=== PATIENT | female | born 1960 | race African-American/Black ===

== ENCOUNTER 2017-11-24 09:44 | Inpatient (IN) | payer BC ==
[2017-11-24] VITALS (43 sets, daily range): BP systolic 109–161; BP diastolic 55–101
[~2017-11-24] VITALS: Ht 162.6 cm; Wt 83.9 kg
[~2017-11-24 09:44] MED LIST: ATEN50TA; HYDR25TA
[2017-11-24] MEDS ORDERED: LABETALOL 5MG/ML SYR 20 MG/4 ML SYRINGE IV ONE (10:00)
[2017-11-24 10:12] LABS: BASOPHILS % 1.3 % (0.0-2.0); EOSINOPHILS % 0.8 % (0.0-5.0); HEMATOCRIT. 39.9 % (36.0-48.0); HEMOGLOBIN. 13.4 g/dL (12.0-16.0); MEAN CORPUSCULAR HEMOGLOBIN 28.1 pg (28.0-32.0); MEAN CORPUSCULAR VOLUME 83.9 fL (81.0-99.0); MEAN PLATELET VOLUME 6.8 fl (7.4-10.4); MONOCYTES % 6.6 % (2.0-8.0); NEUTROPHILS % 60.3 % (40.0-76.0); PLATELET 245 x1000/uL (130-400); RED BLOOD CELL COUNT 4.76 mill/uL (4.2-5.4); RED CELL DISTRIBUTION WIDTH 15.6 % (11.6-14.6)
[2017-11-24 10:19] LABS: CHLORIDE 103 mEq/L (98-107)
[2017-11-24 10:20] LABS: INR 1.1; PROTHROMBIN TIME 10.9 sec (9.4-11.6)
[2017-11-24 10:23] LABS: ETHANOL BLOOD < 10 mg/dL
[2017-11-24 10:26] LABS: LDL CHOLESTEROL 120 mg/dL (5-100)
[2017-11-24] MEDS ORDERED: PHENYTOIN SODIUM 500 MG in SODIUM CHLORIDE 0.9% 50 ML IV ONE (10:30)
[2017-11-24] MEDS ORDERED: NICARDIPINE 40MG/200ML PREMIX 200 ML IV PRN (10:38)
[2017-11-24] MEDS ORDERED: IOHEXOL-350 100 ML BOTTLE ONE (10:49)
[2017-11-24] MEDS: NICARDIPINE 50 MG in SODIUM CHLORIDE 0.9% 230 ML IV STA ×2 (10:55→11:00)
[2017-11-24] MEDS ORDERED: POTASSIUM CHLORIDE 20MEQ TABLET SR PO ONE (11:15)
[2017-11-24] MEDS ORDERED: NICARDIPINE 100 MG in SODIUM CHLORIDE 0.9% 60 ML IV PRN (12:45)
[2017-11-24] MEDS ORDERED: LORAZEPAM 2MG/ML CPJ IV PRN (13:45)
[2017-11-24] MEDS ORDERED: DIPHENHYDRAMINE 50MG/ML VIAL IV PRN (13:45)
[2017-11-24] MEDS ORDERED: MORPHINE SULFATE 2 MG/ML CPJ (NOT FOR IM USE) IV PRN (13:45)
[2017-11-24] MEDS ORDERED: IPRATROPIUM/ALBUTEROL 0.5-3(2.5)MG/3ML NEB INH PRN (13:45)
[2017-11-24] MEDS ORDERED: ONDANSETRON HCL 4MG/2ML VIAL IV PRN (13:45)
[2017-11-24] MEDS ORDERED: MORPHINE SULFATE 4 MG/ML CPJ (NOT FOR IM USE) IV PRN (14:00)
[2017-11-24] MEDS: DEXT 5%/LACTATED RINGERS 1,000 ML IV SCH (14:08)
[2017-11-24] MEDS: PHENYTOIN SODIUM 100MG/2ML VIAL IV SCH ×2 (14:08→21:21)
[2017-11-24] MEDS: NICARDIPINE 100 MG in SODIUM CHLORIDE 0.9% 60 ML IV PRN (16:41)
[2017-11-24] MEDS ORDERED: DEXAMETHASONE 4MG/ML 1ML VIAL IV SCH (18:00)
[2017-11-24] MEDS ORDERED: KCL 20MEQ/100ML PREMIX 100 ML IV NR (21:00)
[2017-11-24] MEDS ORDERED: ATORVASTATIN CALCIUM 10MG TABLET PO SCH (21:00)
[2017-11-24 21:11] LABS: CLARITY URINE CLEAR (CLEAR); COLOR URINE YELLOW (YELLOW); KETONES URINE NEGATIVE (NEGATIVE); LEUKOCYTE ESTERASE URINE NEGATIVE (NEGATIVE); NITRITE URINE NEGATIVE (NEGATIVE); OCCULT BLOOD URINE NEGATIVE (NEGATIVE); PH URINE 8.5 (4.5-8.0); PROTEIN URINE NEGATIVE (NEGATIVE); SPECIFIC GRAVITY URINE 1.015 (1.005-1.030); UROBILINOGEN URINE 0.2 E.U./dL (0.2-1.0)
[2017-11-24] MEDS: DEXAMETHASONE 4MG/ML 1ML VIAL IV SCH (21:21)
[2017-11-24 21:24] LABS: *AMPHETAMINES SCREEN URINE NEGATIVE (NEGATIVE); *BARBITURATES SCREEN URINE NEGATIVE (NEGATIVE); *BENZODIAZEPINES SCREEN URINE NEGATIVE (NEGATIVE)
[2017-11-24 21:25] LABS: *COCAINE SCREEN URINE NEGATIVE (NEGATIVE); CANNABINOID URINE SCREEN NEGATIVE (NEGATIVE); METHADONE URINE SCREEN NEGATIVE (NEGATIVE); OPIATES URINE SCREEN NEGATIVE (NEGATIVE); PHENCYCLIDINE URINE SCREEN NEGATIVE (NEGATIVE)
[2017-11-25] VITALS (47 sets, daily range): BP systolic 99–175; BP diastolic 50–118
[2017-11-25 05:58] LABS: BASOPHILS % 0.2 % (0.0-2.0); HEMATOCRIT. 40.2 % (36.0-48.0); HEMOGLOBIN. 13.5 g/dL (12.0-16.0); LYMPHOCYTES % 10.6 % (20.0-50.0); MEAN CORPUSCULAR HEMOGLOBIN 28.4 pg (28.0-32.0); MEAN CORPUSCULAR VOLUME 84.7 fL (81.0-99.0); MEAN PLATELET VOLUME 7.4 fl (7.4-10.4); MONOCYTES % 1.5 % (2.0-8.0); NEUTROPHILS % 87.7 % (40.0-76.0); PLATELET 275 x1000/uL (130-400); RED BLOOD CELL COUNT 4.75 mill/uL (4.2-5.4)
[2017-11-25] MEDS: DEXAMETHASONE 4MG/ML 1ML VIAL IV SCH ×2 (06:05→17:27)
[2017-11-25] MEDS: PHENYTOIN SODIUM 100MG/2ML VIAL IV SCH (06:05)
[2017-11-25 06:11] LABS: CHLORIDE 104 mEq/L (98-107)
[2017-11-25 06:23] LABS: LDL CHOLESTEROL 138 mg/dL (5-100)
[2017-11-25 06:25] LABS: T4 FREE 0.88 ng/dL (0.76-1.46)
[2017-11-25 06:26] LABS: HDL CHOLESTEROL 104 mg/dL (40-59)
[2017-11-25] MEDS: PANTOPRAZOLE SODIUM 40 MG/VIAL IV SCH ×2 (09:00→09:27)
[2017-11-25] MEDS: DEXT 5%/LACTATED RINGERS 1,000 ML IV SCH (09:34)
[2017-11-25] MEDS: AMLODIPINE 5MG TABLET PO SCH (13:36)
[2017-11-25] MEDS: DOCUSATE SODIUM 100MG CAPSULE PO SCH ×2 (13:36→16:42)
[2017-11-25] MEDS ORDERED: CLONIDINE 0.1MG TABLET PO NR (19:15)
[2017-11-25] MEDS ORDERED: ATORVASTATIN CALCIUM 10MG TABLET PO SCH (21:00)
[2017-11-25] MEDS: ATORVASTATIN CALCIUM 20MG TABLET PO SCH (21:15)
[2017-11-26] VITALS (53 sets, daily range): BP systolic 112–178; BP diastolic 60–122
[2017-11-26] MEDS: DEXT 5%/LACTATED RINGERS 1,000 ML IV SCH ×2 (03:41→22:00)
[2017-11-26] MEDS: DEXAMETHASONE 4MG/ML 1ML VIAL IV SCH ×2 (06:00→18:58)
[2017-11-26] MEDS: NICARDIPINE 100 MG in SODIUM CHLORIDE 0.9% 60 ML IV PRN (07:23)
[2017-11-26] MEDS: PANTOPRAZOLE SODIUM 40 MG/VIAL IV SCH (08:39)
[2017-11-26] MEDS: AMLODIPINE 5MG TABLET PO SCH (08:39)
[2017-11-26] MEDS: DOCUSATE SODIUM 100MG CAPSULE PO SCH ×2 (08:39→18:58)
[2017-11-26] MEDS: LISINOPRIL 10MG TABLET PO SCH (13:03)
[2017-11-26] MEDS: CLONIDINE 0.1MG TABLET PO PRN (15:59)
[2017-11-26] MEDS: ATORVASTATIN CALCIUM 20MG TABLET PO SCH (21:26)
[2017-11-27] VITALS (7 sets, daily range): BP systolic 148–194; BP diastolic 87–106
[2017-11-27] MEDS: DEXAMETHASONE 4MG/ML 1ML VIAL IV SCH (05:55)
[2017-11-27] MEDS: LISINOPRIL 10MG TABLET PO SCH (09:05)
[2017-11-27] MEDS: AMLODIPINE 5MG TABLET PO SCH (09:05)
[2017-11-27] MEDS: PANTOPRAZOLE SODIUM 40 MG/VIAL IV SCH (09:05)
[2017-11-27] MEDS: DOCUSATE SODIUM 100MG CAPSULE PO SCH ×2 (09:05→17:00)
[2017-11-27] MEDS: CLONIDINE 0.1MG TABLET PO PRN ×2 (14:01→20:09)
[2017-11-27] MEDS: HYDRALAZINE HCL 25MG TABLET PO SCH ×2 (14:39→22:18)
[2017-11-27] MEDS ORDERED: FUROSEMIDE 40MG TABLET PO NR (14:45)
[2017-11-27] MEDS: ATORVASTATIN CALCIUM 20MG TABLET PO SCH (20:10)
[2017-11-27] MEDS ORDERED: AMLODIPINE 5MG TABLET PO SCH (21:00)
[2017-11-28] VITALS (8 sets, daily range): BP systolic 134–209; BP diastolic 66–135
[2017-11-28] MEDS ORDERED: CLONIDINE 0.2MG TABLET PO PRN (00:45)
[2017-11-28] MEDS: HYDRALAZINE 20MG/ML VIAL IV PRN ×2 (01:01→08:17)
[2017-11-28] MEDS: HYDRALAZINE HCL 25MG TABLET PO SCH ×3 (06:11→22:27)
[2017-11-28 06:31] LABS: BASOPHILS % 0.5 % (0.0-2.0); EOSINOPHILS % 0.9 % (0.0-5.0); HEMATOCRIT. 38.3 % (36.0-48.0); HEMOGLOBIN. 12.8 g/dL (12.0-16.0); LYMPHOCYTES % 36.5 % (20.0-50.0); MEAN CORPUSCULAR HEMOGLOBIN 28.3 pg (28.0-32.0); MEAN CORPUSCULAR VOLUME 84.7 fL (81.0-99.0); MEAN PLATELET VOLUME 7.2 fl (7.4-10.4); MONOCYTES % 9.1 % (2.0-8.0); PLATELET 221 x1000/uL (130-400); RED BLOOD CELL COUNT 4.53 mill/uL (4.2-5.4); RED CELL DISTRIBUTION WIDTH 15.6 % (11.6-14.6)
[2017-11-28] MEDS: LISINOPRIL 40MG TABLET PO SCH (08:16)
[2017-11-28] MEDS: PANTOPRAZOLE SODIUM 40 MG/VIAL IV SCH (08:16)
[2017-11-28] MEDS: AMLODIPINE 10MG TABLET PO SCH ×2 (08:16→21:00)
[2017-11-28] MEDS: DOCUSATE SODIUM 100MG CAPSULE PO SCH ×2 (08:16→17:35)
[2017-11-28] MEDS: LORAZEPAM 2MG/ML CPJ IV PRN ×2 (08:16→19:46)
[2017-11-28 08:44] LABS: CHLORIDE 106 mEq/L (98-107)
[2017-11-28] MEDS ORDERED: LISINOPRIL 20MG TABLET PO SCH (09:00)
[2017-11-28] MEDS ORDERED: POTASSIUM CHLORIDE 20MEQ TABLET SR PO NR (10:45)
[2017-11-28] MEDS: ATORVASTATIN CALCIUM 20MG TABLET PO SCH (21:00)
[2017-11-28] MEDS: MIRTAZAPINE 15MG TABLET PO SCH (21:00)
[2017-11-29] VITALS (9 sets, daily range): BP systolic 129–170; BP diastolic 80–103
[2017-11-29] MEDS: HYDRALAZINE HCL 25MG TABLET PO SCH (06:12)
[2017-11-29 07:44] LABS: CHLORIDE 105 mEq/L (98-107)
[2017-11-29 08:08] LABS: HEMATOCRIT 39.7 % (36.0-48.0); HEMOGLOBIN 13.3 g/dL (12.0-16.0); MEAN CORPUSCULAR HEMOGLOBIN 28.4 pg (28.0-32.0); PLATELET 248 x1000/uL (130-400); RED BLOOD CELL COUNT 4.67 mill/uL (4.2-5.4); RED CELL DISTRIBUTION WIDTH 15.6 % (11.6-14.6)
[2017-11-29] MEDS: CLONIDINE 0.1MG TABLET PO PRN (08:47)
[2017-11-29] MEDS: DOCUSATE SODIUM 100MG CAPSULE PO SCH ×2 (08:47→17:13)
[2017-11-29] MEDS: PANTOPRAZOLE SODIUM 40 MG/VIAL IV SCH (08:47)
[2017-11-29] MEDS: LISINOPRIL 40MG TABLET PO SCH (08:47)
[2017-11-29] MEDS: AMLODIPINE 10MG TABLET PO SCH ×2 (08:48→20:12)
[2017-11-29] MEDS: HYDRALAZINE 20MG/ML VIAL IV PRN (10:32)
[2017-11-29] MEDS ORDERED: CLONIDINE 0.1MG TABLET PO PRN (12:45)
[2017-11-29] MEDS ORDERED: HYDRALAZINE 20MG/ML VIAL IV PRN (12:45)
[2017-11-29] MEDS ORDERED: CLONIDINE 0.1MG TABLET PO NR (12:45)
[2017-11-29] MEDS: CLONIDINE 0.1MG TABLET PO SCH ×2 (12:45→20:13)
[2017-11-29] MEDS: HYDRALAZINE HCL 100MG TABLET PO SCH ×2 (13:50→23:00)
[2017-11-29] MEDS: ATORVASTATIN CALCIUM 20MG TABLET PO SCH (20:13)
[2017-11-29] MEDS: METOPROLOL TARTRATE 25MG TABLET PO SCH (20:13)
[2017-11-29] MEDS: MIRTAZAPINE 15MG TABLET PO SCH (20:13)
[2017-11-29] MEDS: LORAZEPAM 2MG/ML CPJ IV PRN (20:58)
[2017-11-30] VITALS (8 sets, daily range): BP systolic 108–153; BP diastolic 65–103
[2017-11-30] MEDS: HYDRALAZINE HCL 100MG TABLET PO SCH ×3 (05:53→21:31)
[2017-11-30 06:05] LABS: EOSINOPHILS % 1.4 % (0.0-5.0); HEMATOCRIT. 40.6 % (36.0-48.0); HEMOGLOBIN. 13.6 g/dL (12.0-16.0); LYMPHOCYTES % 22.1 % (20.0-50.0); MEAN CORPUSCULAR HEMOGLOBIN 28.3 pg (28.0-32.0); MEAN CORPUSCULAR VOLUME 84.7 fL (81.0-99.0); MEAN PLATELET VOLUME 7.2 fl (7.4-10.4); MONOCYTES % 9.2 % (2.0-8.0); NEUTROPHILS % 66.3 % (40.0-76.0); PLATELET 259 x1000/uL (130-400); RED CELL DISTRIBUTION WIDTH 15.9 % (11.6-14.6)
[2017-11-30 06:18] LABS: CHLORIDE 106 mEq/L (98-107)
[2017-11-30 06:29] LABS: CREATINE KINASE 37 IU/L (26-192)
[2017-11-30 06:34] LABS: CREATINE KINASE MB FRACTION 0.5 ng/mL (0.5-3.6)
[2017-11-30] MEDS: FAMOTIDINE 20MG TABLET PO SCH ×2 (08:38→17:26)
[2017-11-30] MEDS: LISINOPRIL 40MG TABLET PO SCH (08:38)
[2017-11-30] MEDS: DOCUSATE SODIUM 100MG CAPSULE PO SCH ×2 (08:39→17:25)
[2017-11-30] MEDS: AMLODIPINE 10MG TABLET PO SCH ×2 (08:39→21:32)
[2017-11-30] MEDS: METOPROLOL TARTRATE 25MG TABLET PO SCH ×2 (08:39→21:32)
[2017-11-30] MEDS: CLONIDINE 0.1MG TABLET PO SCH ×2 (08:58→21:32)
[2017-11-30] MEDS: ATORVASTATIN CALCIUM 20MG TABLET PO SCH (21:32)
[2017-11-30] MEDS: MIRTAZAPINE 15MG TABLET PO SCH (21:33)
[2017-11-30] MEDS: LORAZEPAM 2MG/ML CPJ IV PRN (22:07)
[2017-12-01] VITALS: BP 120/59
[2017-12-01 04:00] VITALS: BP 121/74
[2017-12-01] MEDS: HYDRALAZINE HCL 100MG TABLET PO SCH (06:00)
[2017-12-01 08:00] VITALS: BP 156/107
[2017-12-01] MEDS: AMLODIPINE 10MG TABLET PO SCH (08:22)
[2017-12-01] MEDS: METOPROLOL TARTRATE 25MG TABLET PO SCH (08:22)
[2017-12-01] MEDS: FAMOTIDINE 20MG TABLET PO SCH (08:22)
[2017-12-01] MEDS: DOCUSATE SODIUM 100MG CAPSULE PO SCH (08:23)
[2017-12-01] MEDS: CLONIDINE 0.1MG TABLET PO SCH (08:23)
[2017-12-01] MEDS: LISINOPRIL 40MG TABLET PO SCH (08:23)
== END 2017-12-01 10:20 | disposition home health service (06) | DRG 64 ==
LOC: ER 09:44 → MICUNO 11:04 → ENRESERV 11:43 → SUPCPDRO 13:33 → 5WST 11-26 23:59
PROVIDERS: ADMIT Internal Medicine; ATTEND Internal Medicine
DX: I61.0 Nontraumatic intracerebral hemorrhage in hemisphere, subcortical (principal); I50.33 Acute on chronic diastolic (congestive) heart failure; I16.1 Hypertensive emergency; G81.94 Hemiplegia, unspecified affecting left nondominant side; I11.9 Hypertensive heart disease without heart failure; E66.9 Obesity, unspecified; E87.6 Hypokalemia; E78.00 Pure hypercholesterolemia, unspecified; E78.5 Hyperlipidemia, unspecified; R73.9 Hyperglycemia, unspecified; F41.9 Anxiety disorder, unspecified; G47.00 Insomnia, unspecified; I11.0 Hypertensive heart disease with heart failure; M19.90 Unspecified osteoarthritis, unspecified site; Z79.899 Other long term (current) drug therapy; Z82.49 Family history of ischemic heart disease and other diseases of the circulatory system; Z91.19 Patient's noncompliance with other medical treatment and regimen; Z98.891 History of uterine scar from previous surgery; Z68.31 Body mass index [BMI] 31.0-31.9, adult
CPT/HCPCS: 36415; 70450; 70496; 71045; 80048; 80053; 80061; 80305; 81003; 82550; 82553; 82962; 83036; 83690; 83721; 83735; 83880; 84439; 84443; 84484; 85025; 85027; 85610; 86850; 86900; 92610; 93005; 93306; 93880; 97116; 97161; 97166; 97530; 97535; C9113; G0482; J0360; J1100; J1165; J1200; J2060; J3480; J3490; J7040; J7050; Q9967; A4315

== ENCOUNTER 2017-12-06 06:32 | Observation (INO) | payer BC ==
[~2017-12-06] VITALS: Ht 162.6 cm; Wt 84.4 kg
[2017-12-06 07:19] LABS: BASOPHILS % 0.1 % (0.0-2.0); EOSINOPHILS % 0.8 % (0.0-5.0); HEMATOCRIT. 38.5 % (36.0-48.0); HEMOGLOBIN. 12.9 g/dL (12.0-16.0); LYMPHOCYTES % 29.7 % (20.0-50.0); MEAN CORPUSCULAR HEMOGLOBIN 28.2 pg (28.0-32.0); MEAN CORPUSCULAR VOLUME 84.1 fL (81.0-99.0); MEAN PLATELET VOLUME 6.9 fl (7.4-10.4); MONOCYTES % 9.1 % (2.0-8.0); NEUTROPHILS % 60.3 % (40.0-76.0); PLATELET 265 x1000/uL (130-400); RED BLOOD CELL COUNT 4.58 mill/uL (4.2-5.4); RED CELL DISTRIBUTION WIDTH 15.4 % (11.6-14.6)
[2017-12-06 07:25] LABS: CHLORIDE 102 mEq/L (98-107)
[2017-12-06 07:29] LABS: D-DIMER 1.92 mg/L FEU (<0.50); PROTHROMBIN TIME 10.8 sec (9.4-11.6)
[2017-12-06] MEDS ORDERED: HYDRALAZINE HCL 50MG TABLET PO ONE (08:30)
[2017-12-06] MEDS ORDERED: HYDRALAZINE HCL 50MG TABLET PO NR (08:30)
[2017-12-06] MEDS ORDERED: IOHEXOL-350 100 ML BOTTLE ONE (09:34)
[2017-12-06] MEDS ORDERED: CLONIDINE 0.1MG TABLET PO NR (09:39)
[2017-12-06 10:00] VITALS: BP 187/109
[2017-12-06 12:00] VITALS: BP 159/98
[2017-12-06] MEDS ORDERED: HYDROCODONE/ACETAMINOPHEN 5/325MG TABLET PO PRN (12:45)
[2017-12-06] MEDS ORDERED: ONDANSETRON HCL 4MG/2ML VIAL IV PRN (12:45)
[2017-12-06] MEDS ORDERED: MAGNESIUM/ALUMINUM HYDROXIDE/SIMETHICONE 30ML UDC PO PRN (12:45)
[2017-12-06] MEDS ORDERED: NA PHOS,M-B/NA PHOS,DI-BA ENEMA 118ML PR PRN (12:45)
[2017-12-06] MEDS ORDERED: DIPHENHYDRAMINE 50MG/ML VIAL IV PRN (12:45)
[2017-12-06] MEDS ORDERED: ACETAMINOPHEN 650MG/20.3ML UDC GT PRN (12:45)
[2017-12-06] MEDS ORDERED: CLONIDINE 0.1MG TABLET PO PRN ×2 (12:45→13:30)
[2017-12-06] MEDS ORDERED: IPRATROPIUM/ALBUTEROL 0.5-3(2.5)MG/3ML NEB INH PRN (13:00)
[2017-12-06] MEDS ORDERED: ATOR20TA MT (13:20)
[2017-12-06] MEDS ORDERED: HYDR-4134 MT (13:21)
[2017-12-06] MEDS ORDERED: AMLO10TA80 MT (13:22)
[2017-12-06] MEDS ORDERED: CLON-457 PO (13:23)
[2017-12-06] MEDS ORDERED: DOCU-138 MT (13:23)
[2017-12-06] MEDS ORDERED: LISI40TA4 MT (13:24)
[2017-12-06] MEDS ORDERED: METO25TA6 MT (13:25)
[2017-12-06] MEDS ORDERED: LORA0.5T2 MT (13:25)
[2017-12-06] MEDS ORDERED: MIRT15TA7 MT (13:26)
[2017-12-06] MEDS ORDERED: HYDRALAZINE 20MG/ML VIAL IV PRN (13:30)
[2017-12-06] MEDS: HYDRALAZINE HCL 50MG TABLET PO SCH ×2 (14:30→21:37)
[2017-12-06] MEDS: CLONIDINE 0.1MG TABLET PO SCH ×2 (14:31→16:43)
[2017-12-06] MEDS: AMLODIPINE 10MG TABLET PO SCH (14:31)
[2017-12-06] MEDS: LISINOPRIL 20MG TABLET PO SCH ×2 (14:31→21:37)
[2017-12-06 16:00] VITALS: BP 136/76
[2017-12-06 20:22] VITALS: BP 162/105
[2017-12-06] MEDS: ATORVASTATIN CALCIUM 20MG TABLET PO SCH (21:37)
[2017-12-06] MEDS: MIRTAZAPINE 15MG TABLET PO SCH (21:38)
[2017-12-06] MEDS: METOPROLOL TARTRATE 25MG TABLET PO SCH (21:38)
[2017-12-07 00:03] VITALS: BP 101/61
[2017-12-07 04:48] VITALS: BP 163/79
[2017-12-07] MEDS: HYDRALAZINE HCL 50MG TABLET PO SCH (06:31)
[2017-12-07 07:37] LABS: BASOPHILS % 3.2 % (0.0-2.0); CHLORIDE 104 mEq/L (98-107); EOSINOPHILS % 0.6 % (0.0-5.0); HEMATOCRIT. 39.5 % (36.0-48.0); HEMOGLOBIN. 13.4 g/dL (12.0-16.0); LYMPHOCYTES % 30.6 % (20.0-50.0); MEAN CORPUSCULAR HEMOGLOBIN 28.6 pg (28.0-32.0); MEAN CORPUSCULAR VOLUME 84.5 fL (81.0-99.0); MEAN PLATELET VOLUME 7.5 fl (7.4-10.4); MONOCYTES % 7.8 % (2.0-8.0); NEUTROPHILS % 57.8 % (40.0-76.0); PLATELET 246 x1000/uL (130-400); RED BLOOD CELL COUNT 4.68 mill/uL (4.2-5.4); RED CELL DISTRIBUTION WIDTH 15.4 % (11.6-14.6)
[2017-12-07 07:57] LABS: CREATINE KINASE 52 IU/L (26-192); LDL CHOLESTEROL 71 mg/dL (5-100); T4 FREE 1.22 ng/dL (0.76-1.46)
[2017-12-07 07:59] LABS: HDL CHOLESTEROL 74 mg/dL (40-59)
[2017-12-07 08:00] VITALS: BP 199/120
[2017-12-07 08:01] LABS: CREATINE KINASE MB FRACTION 0.8 ng/mL (0.5-3.6)
[2017-12-07] MEDS: CLONIDINE 0.1MG TABLET PO SCH ×2 (08:13→18:00)
[2017-12-07] MEDS: AMLODIPINE 10MG TABLET PO SCH ×2 (08:13→21:00)
[2017-12-07] MEDS: METOPROLOL TARTRATE 25MG TABLET PO SCH ×2 (08:13→21:00)
[2017-12-07] MEDS: LORAZEPAM 0.5MG TABLET PO PRN (08:13)
[2017-12-07] MEDS: LISINOPRIL 20MG TABLET PO SCH (08:13)
[2017-12-07 11:40] LABS: METHADONE URINE SCREEN NEGATIVE (NEGATIVE)
[2017-12-07 11:41] LABS: *AMPHETAMINES SCREEN URINE NEGATIVE (NEGATIVE); *BARBITURATES SCREEN URINE NEGATIVE (NEGATIVE); *BENZODIAZEPINES SCREEN URINE NEGATIVE (NEGATIVE); CANNABINOID URINE SCREEN NEGATIVE (NEGATIVE); OPIATES URINE SCREEN NEGATIVE (NEGATIVE); PHENCYCLIDINE URINE SCREEN NEGATIVE (NEGATIVE)
[2017-12-07 11:42] LABS: *COCAINE SCREEN URINE NEGATIVE (NEGATIVE)
[2017-12-07 12:00] VITALS: BP 136/90
[2017-12-07] MEDS ORDERED: HYDRALAZINE HCL 50MG TABLET PO SCH (12:00)
[2017-12-07] MEDS: LOSARTAN POTASSIUM 50 MG TABLET PO SCH ×2 (13:57→21:00)
[2017-12-07] MEDS: HYDRALAZINE HCL 100MG TABLET PO SCH ×2 (13:57→18:00)
[2017-12-07] MEDS: NITROGLYCERIN OINT 1GM/INCH UDPKT TD SCH ×3 (13:58→20:00)
[2017-12-07] MEDS: ACETAMINOPHEN 325MG TABLET PO PRN (15:32)
[2017-12-07 16:00] VITALS: BP 154/91
[2017-12-07 20:00] VITALS: BP 122/73
[2017-12-07] MEDS: ATORVASTATIN CALCIUM 20MG TABLET PO SCH (20:45)
[2017-12-07] MEDS: MIRTAZAPINE 15MG TABLET PO SCH (20:45)
[2017-12-08] VITALS: BP 113/59
[2017-12-08 04:00] VITALS: BP 138/77
[2017-12-08] MEDS: NITROGLYCERIN OINT 1GM/INCH UDPKT TD SCH ×6 (04:00→20:00)
[2017-12-08 06:57] LABS: EOSINOPHILS % 0.8 % (0.0-5.0); HEMATOCRIT. 36.9 % (36.0-48.0); HEMOGLOBIN. 12.6 g/dL (12.0-16.0); LYMPHOCYTES % 28.2 % (20.0-50.0); MEAN CORPUSCULAR HEMOGLOBIN 28.7 pg (28.0-32.0); MEAN CORPUSCULAR VOLUME 84.2 fL (81.0-99.0); MEAN PLATELET VOLUME 7.4 fl (7.4-10.4); MONOCYTES % 9.4 % (2.0-8.0); NEUTROPHILS % 59.6 % (40.0-76.0); PLATELET 247 x1000/uL (130-400); RED BLOOD CELL COUNT 4.39 mill/uL (4.2-5.4); RED CELL DISTRIBUTION WIDTH 15.4 % (11.6-14.6)
[2017-12-08 06:59] LABS: CHLORIDE 105 mEq/L (98-107)
[2017-12-08 08:00] VITALS: BP 178/96
[2017-12-08] MEDS: METOPROLOL TARTRATE 25MG TABLET PO SCH ×2 (08:55→21:27)
[2017-12-08] MEDS: LORAZEPAM 0.5MG TABLET PO PRN ×2 (08:55→17:11)
[2017-12-08] MEDS: LOSARTAN POTASSIUM 50 MG TABLET PO SCH ×2 (08:55→21:28)
[2017-12-08] MEDS: CLONIDINE 0.1MG TABLET PO SCH ×2 (08:55→16:23)
[2017-12-08] MEDS: HYDRALAZINE HCL 100MG TABLET PO SCH ×3 (08:55→16:23)
[2017-12-08] MEDS: AMLODIPINE 10MG TABLET PO SCH ×2 (08:56→21:27)
[2017-12-08 12:00] VITALS: BP 168/93
[2017-12-08] MEDS: ACETAMINOPHEN 325MG TABLET PO PRN (12:54)
[2017-12-08] MEDS ORDERED: POTASSIUM CHLORIDE 20MEQ TABLET SR PO NR (15:00)
[2017-12-08 16:00] VITALS: BP 147/97
[2017-12-08 20:00] VITALS: BP 143/63
[2017-12-08] MEDS: ATORVASTATIN CALCIUM 20MG TABLET PO SCH (21:26)
[2017-12-08] MEDS: MIRTAZAPINE 15MG TABLET PO SCH (21:27)
[2017-12-08] MEDS: MINOXIDIL 2.5MG TABLET PO SCH (21:28)
[2017-12-09] VITALS: BP 113/76
[2017-12-09 04:00] VITALS: BP 130/69
[2017-12-09] MEDS: NITROGLYCERIN OINT 1GM/INCH UDPKT TD SCH ×4 (04:00→12:00)
[2017-12-09 05:45] LABS: CHLORIDE 107 mEq/L (98-107)
[2017-12-09 06:15] LABS: BASOPHILS % 1.7 % (0.0-2.0); EOSINOPHILS % 0.7 % (0.0-5.0); HEMATOCRIT. 35.5 % (36.0-48.0); LYMPHOCYTES % 23.8 % (20.0-50.0); MEAN CORPUSCULAR HEMOGLOBIN 28.6 pg (28.0-32.0); MEAN CORPUSCULAR VOLUME 84.2 fL (81.0-99.0); MEAN PLATELET VOLUME 7.3 fl (7.4-10.4); MONOCYTES % 9.4 % (2.0-8.0); NEUTROPHILS % 64.4 % (40.0-76.0); PLATELET 250 x1000/uL (130-400); RED BLOOD CELL COUNT 4.21 mill/uL (4.2-5.4); RED CELL DISTRIBUTION WIDTH 15.4 % (11.6-14.6)
[2017-12-09 08:00] VITALS: BP 128/72
[2017-12-09] MEDS: AMLODIPINE 10MG TABLET PO SCH (09:22)
[2017-12-09] MEDS: CLONIDINE 0.1MG TABLET PO SCH (09:23)
[2017-12-09] MEDS: HYDRALAZINE HCL 100MG TABLET PO SCH ×2 (09:23→13:00)
[2017-12-09] MEDS: LOSARTAN POTASSIUM 50 MG TABLET PO SCH (09:23)
[2017-12-09] MEDS: METOPROLOL TARTRATE 25MG TABLET PO SCH (09:23)
[2017-12-09] MEDS: MINOXIDIL 2.5MG TABLET PO SCH (09:24)
[2017-12-09 12:00] VITALS: BP 118/68
[2017-12-09 16:29] VITALS: BP 132/67
== END 2017-12-09 18:06 | disposition home or self-care (01) ==
LOC: ER 06:35 → 7WST 07:51 → INTOOBSV 07:51 → EDBEDREQTM 07:55 → EDBEDREQ 07:55 → ENRESERV 08:17
PROVIDERS: ADMIT Internal Medicine; ATTEND Internal Medicine
DX: R06.03 Acute respiratory distress (principal); E46 Unspecified protein-calorie malnutrition; E87.6 Hypokalemia; F41.9 Anxiety disorder, unspecified; I11.9 Hypertensive heart disease without heart failure; I25.9 Chronic ischemic heart disease, unspecified; I51.7 Cardiomegaly; I69.10 Unspecified sequelae of nontraumatic intracerebral hemorrhage; Z86.73 Personal history of transient ischemic attack (TIA), and cerebral infarction without residual deficits
CPT/HCPCS: 36415; 70450; 71045; 71275; 80048; 80053; 80061; 80305; 82550; 82553; 83605; 83690; 83735; 83880; 84439; 84443; 84484; 85025; 85379; 85610; 87040; 93005; 93970; 97162; 99291; G0378; Q9967

== ENCOUNTER 2018-05-31 10:18 | Emergency (ER) | payer BC ==
[~2018-05-31] VITALS: Ht 162.6 cm; Wt 71.0 kg
[~2018-05-31 10:18] MED LIST changes: +AMLO10TA80 MT; -ATEN50TA; +ATOR20TA MT; +CLON-457 PO; +DOCU-138 MT; +HYDR-4134 MT; -HYDR25TA; +LISI40TA4 MT; +LORA0.5T2 MT; +METO25TA6 MT; +MIRT15TA7 MT
[2018-05-31] MEDS ORDERED: SULFAMETHOXAZOLE/TRIMETHOPRIM 800/160MG TABLET PO ONE (11:15)
[2018-05-31] MEDS ORDERED: BACITRACIN ZINC OINT UDPKT TOP ONE (11:15)
[2018-05-31] MEDS ORDERED: LIDOCAINE HCL/EPINEPHRINE 1%-EPI 1:100,000 30 ML VIAL INFIL ONE (11:15)
[2018-05-31] MEDS ORDERED: CEPHALEXIN 250MG CAPSULE PO ONE (11:15)
[2018-05-31 12:51] VITALS: BP 121/91
== END 2018-05-31 12:54 | disposition home or self-care (01) ==
LOC: ER 12:23
DX: L02.818 Cutaneous abscess of other sites (principal); I10 Essential (primary) hypertension; Z86.73 Personal history of transient ischemic attack (TIA), and cerebral infarction without residual deficits
CPT/HCPCS: 10060; 99284

== ENCOUNTER 2018-06-02 10:59 | Emergency (ER) | payer BC, MEDICAID ==
[~2018-06-02] VITALS: Ht 162.6 cm; Wt 71.0 kg
[2018-06-02] MEDS ORDERED: LIDOCAINE HCL 1% 20ML VIAL (Pyxis) INJ INFIL ONE (12:00)
[2018-06-02] MEDS ORDERED: IBUPROFEN 600MG TABLET PO ONE (13:00)
[2018-06-02 13:50] VITALS: BP 139/92
== END 2018-06-02 14:00 | disposition home or self-care (01) ==
LOC: ER 13:26
DX: Z48.00 Encounter for change or removal of nonsurgical wound dressing (principal); I10 Essential (primary) hypertension; Z86.73 Personal history of transient ischemic attack (TIA), and cerebral infarction without residual deficits; Z98.890 Other specified postprocedural states
CPT/HCPCS: 10060; 99283; J3490

== ENCOUNTER 2018-06-04 10:53 | Emergency (ER) | payer BC, MEDICAID ==
[~2018-06-04] VITALS: Ht 162.6 cm; Wt 70.0 kg
[2018-06-04] MEDS ORDERED: BACITRACIN 15GM TUBE TOP ONE (12:30)
[2018-06-04] MEDS ORDERED: BACITRACIN ZINC OINT UDPKT TOP ONE (12:45)
[2018-06-04 13:06] VITALS: BP 122/83
== END 2018-06-04 15:00 | disposition home or self-care (01) ==
LOC: ER 13:48
DX: Z48.00 Encounter for change or removal of nonsurgical wound dressing (principal)
CPT/HCPCS: 99283

== ENCOUNTER 2018-06-06 12:17 | Emergency (ER) | payer BC, MEDICAID ==
[~2018-06-06] VITALS: Ht 167.6 cm; Wt 70.0 kg
[2018-06-06 12:42] VITALS: BP 142/97
== END 2018-06-06 21:05 | disposition left against medical advice (07) ==
LOC: ER 14:54
DX: Z48.00 Encounter for change or removal of nonsurgical wound dressing (principal); Z53.21 Procedure and treatment not carried out due to patient leaving prior to being seen by health care provider

== ENCOUNTER 2018-06-22 13:49 | Emergency (ER) | payer BC, MEDICAID ==
[~2018-06-22] VITALS: Ht 162.6 cm; Wt 69.0 kg
[2018-06-22] MEDS ORDERED: GABA300C MT (15:04)
[2018-06-22] MEDS ORDERED: LOSA100T14 MT (15:04)
[2018-06-22 15:05] VITALS: BP 170/105
[2018-06-22] MEDS ORDERED: BACITRACIN ZINC OINT UDPKT TOP ONE (16:00)
== END 2018-06-22 16:21 | disposition home or self-care (01) ==
LOC: ER 13:49
DX: S81.852A Open bite, left lower leg, initial encounter (principal); I10 Essential (primary) hypertension; I69.354 Hemiplegia and hemiparesis following cerebral infarction affecting left non-dominant side; Z86.73 Personal history of transient ischemic attack (TIA), and cerebral infarction without residual deficits; Z98.890 Other specified postprocedural states; Z79.899 Other long term (current) drug therapy; W57.XXXA Bitten or stung by nonvenomous insect and other nonvenomous arthropods, initial encounter; Y93.89 Activity, other specified; Y92.89 Other specified places as the place of occurrence of the external cause; Y99.8 Other external cause status
CPT/HCPCS: 99282